=== PATIENT | male | born 1985 | race Caucasian/White ===

== ENCOUNTER 2021-05-10 18:35 | Emergency (ER) | payer SELFPAY ==
[~2021-05-10] VITALS: Ht 175.3 cm; Wt 81.6 kg
[2021-05-10 18:35] VITALS: BP_SYST 155
--- NOTE | 2021-05-10 18:36 | NUR ---
BROUGHT IMMEDIATELY BACK TO BED #7 AND TRIAGED. REPORT GIVEN TO RITA
--- NOTE | 2021-05-10 18:41 | NUR ---
DR DAO AT BEDSIDE FOR EVALUATION
--- NOTE | 2021-05-10 18:53 | NUR ---
PT COMES IN WITH C/O INTERMITTENT ANTERIOR NON RADIATING CHEST WALL PAIN SINCE 033 THIS MORNING UPON WAKING UP. FELT BETTER DAY PROGRESSED BUT STARTED AGAIN THIS EARLY EVENING. RESP EVEN AND UNLABORED, ON RA @98%. DENIES ANY SOB. ADMITS TOT HAVING COVID 2 WEEKS AGO, AT BEDSIDE. SKIN W/D/I. DENIES ANY N/V/D. EKG DONE, SEEN BY DR MONTGOMERY.
--- NOTE | 2021-05-10 19:14 | NUR ---
REPORT GIVEN TO CHANDA JAEGER
--- NOTE | 2021-05-10 19:26 | NUR ---
Pt resting comfortably in bed AOX4 VSS Able to make needs known Will continue care
[2021-05-10 19:36] LABS: CALCIUM 8.5 mg/dL (8.4-11.0); CREATININE 1.03 mg/dL (0.55-1.30); POTASSIUM 4.2 mmol/L (3.5-5.1)
[2021-05-10 19:37] LABS: BASOPHILS # (AUTO) 0.1 K/uL (0.0-0.2); BASOPHILS % (AUTO) 0.8 % (0.0-2.0); EOSINOPHILS # (AUTO) 0.1 K/uL (0.0-0.4); HEMATOCRIT 42.5 % (36-54); HEMOGLOBIN 14.7 g/dL (14.0-18.0); LYMPHOCYTES # (AUTO) 2.4 K/uL (1.0-5.5); LYMPHOCYTES % (AUTO) 35.9 % (20.5-51.5); MEAN CORPUSCULAR HEMOGLOBIN 32 pg (27-31); MEAN CORPUSCULAR HGB CONC 35 % (32-36); MEAN CORPUSCULAR VOLUME 91 fL (79.0-98.0); MONOCYTES # (AUTO) 0.5 K/uL (0.0-1.0); MONOCYTES % (AUTO) 7.6 % (1.7-9.3); NEUTROPHILS # (AUTO) 3.5 K/uL (1.8-7.7); NEUTROPHILS % (AUTO) 53.7 % (40.0-70.0); PLATELET COUNT (AUTO) 295 K/uL (130-430); RED BLOOD CELL COUNT(AUTO) 4.65 MIL/uL (4.2-6.2); RED CELL DISTRIBUTION WIDTH 12.8 % (9.0-15.0); WHITE BLOOD COUNT (AUTO) 6.6 K/uL (4.8-10.8)
[2021-05-10 19:45] LABS: ALBUMIN 3.5 g/dL (3.4-4.8); TOTAL BILIRUBIN 0.2 mg/dL (0.0-1.0)
[2021-05-10 20:27] VITALS: BP_SYST 120
--- NOTE | 2021-05-10 20:28 | NUR ---
Patient given written and verbal discharge instructions and verbalizes understanding. ER MD discussed with patient the results and treatment provided. Patient in stable condition. Patient educated on pain management and to follow up with PMD. Pain Scale 0. Opportunity for questions provided and answered. Pt exited ED in stable gait
== END 2021-05-10 20:26 | disposition home or self-care (01) ==
LOC: SED 18:35
DX: R07.89 Other chest pain (principal); F17.210 Nicotine dependence, cigarettes, uncomplicated; Z71.6 Tobacco abuse counseling
CPT/HCPCS: 36415; 71045; 80053; 84484; 85025; 93005; 99285